=== PATIENT | female | born 1980 | race African-American/Black ===

== ENCOUNTER 2016-12-30 18:40 | Emergency (ER) | payer OTHER ==
[~2016-12-30] VITALS: Ht 167.6 cm; Wt 95.2 kg
--- NOTE | ~2016-12-30 | CR126 ---
[facility] A Service of [facility] & [facility] RADIOLOGY TEXT RESULTS PATIENT: DESTINEY QUINN LOCATION: [facility] : 78 UNIT #: [id number] AGE: [address]: Anatoly Johnson MD SEX: F ORDER DR: [id number] [facility] [address] [place], [place] [address] [id number] E MR#: [id number] Acc #: [id number] NAME: DESTINEY QUINN : 1980 SEX: F STUDY DATE/TIME: 12/30/2016 19:09 UNIT: [facility] ROOM: STUDY DESCRIPTION: CR Foot Complete Min 3 View Lt Attending Physician: Anatoly Johnson M.D. Ordering Physician: Anatoly Johnson M.D. Primary Care Physician: Primary Care Physician No MEDICAL IMAGING REPORT This report is preliminary unless electronic signature is present EXAM Left foot 3 views, 12/30/2016 1909 hours CLINICAL HISTORY Patient fell down stairs today with left foot pain since fall. COMPARISON None. FINDINGS AP, lateral and oblique views demonstrate no fracture, dislocation or significant degenerative change. There is an accessory ossicle adjacent to the navicular bone. IMPRESSION Negative left foot. No fracture seen. Dictated by... Monisha Roberson M.D. THIS IS AN ELECTRONICALLY VERIFIED REPORT Monisha Roberson M.D. at 12/31/2016 9:27 AM MAURA/hemanth TD: 12/30/2016 23:40 JOB #: [id number] MEDICAL IMAGING REPORT Page 1 of 1 COPY
== END 2016-12-30 19:45 | disposition home or self-care (01) ==
LOC: CED 18:40 → CFTX 18:40
DX: S93.602A Unspecified sprain of left foot, initial encounter (principal); X50.1XXA Overexertion from prolonged static or awkward postures, initial encounter; Y99.8 Other external cause status
CPT/HCPCS: 29540; 73630; 99283